=== PATIENT | female | born 1995 | race American Indian/Alaskan Native ===

== ENCOUNTER 2018-08-31 07:00 | Inpatient (IN) | payer MEDICAID, OTHER ==
[2018-08-31 07:45] LABS: Hematocrit 38.4 % (30.3-42.9); Hemoglobin 12.6 gm/dl (10.1-14.3); Mean Corpuscular HGB Conc 33 % (30-34); Mean Corpuscular Volume 89 fl (79-97); Platelet Count 255 K/mm3 (140-440); Red Blood Count 4.31 M/mm3 (3.65-5.03); Red Cell Distribution Width 13.1 % (13.2-15.2)
[2018-08-31] MEDS ORDERED: LACTATED RINGERS 1,000 ML IV ONE (08:00)
[2018-08-31] MEDS ORDERED: PITOCin/NS 20 UNIT/1000ML DRIP 20 UNITS/1,000 ML BAG IV SCH (08:30)
[2018-08-31] MEDS ORDERED: SUBLIMAZE IV PRN (09:00)
[2018-08-31] MEDS ORDERED: LACTATED RINGERS 1,000 ML IV SCH ×2 (09:00→11:00)
[2018-08-31] MEDS ORDERED: XYLOCAINE 2% INFILTRATI NR (09:00)
[2018-08-31] MEDS ORDERED: BRETHINE SUB-Q PRN (09:00)
[2018-08-31] MEDS ORDERED: BRETHINE IVP PRN (09:00)
[2018-08-31] MEDS ORDERED: MINERAL OIL PO PRN (09:00)
[2018-08-31] MEDS ORDERED: NARCAN 2 MG/2 ML IV PRN (10:00)
--- NOTE | 2018-08-31 10:04 | Post Anesthesia Evaluation ---
- Post Anesthesia Evaluation Patient Participated: Yes Airway Patent: Yes Stable Respiratory Function: Yes Nausea/Vomiting: Yes Temp > 96.8F: Yes Pain Manageable: Yes Adequeate Hydration: Yes Anesthesia Complications: No Block Receding Appropriately: Yes Patient on Ventilator: Yes
--- NOTE | 2018-08-31 10:04 | Anesthesia Consultation ---
Anesthesia Consult and Med Hx Date of service: 08/31/18 - Airway Anesthetic Teeth Evaluation: Good ROM Head & Neck: Adequate Mental/Hyoid Distance: Adequate Mallampati Class: Class I Intubation Access Assessment: Good - Pulmonary Exam CTA: Yes - Cardiac Exam Cardiac Exam: RRR - Pre-Operative Health Status ASA Pre-Surgery Classification: ASA2 Proposed Anesthetic Plan: Epidural - Pulmonary Hx Smoking: No Hx Asthma: No Hx Respiratory Symptoms: No SOB: No COPD: No Home Oxygen Therapy: No Hx Pneumonia: No Hx Sleep Apnea: No - Cardiovascular System Hx Hypertension: No Hx Coronary Artery Disease: No Hx Heart Attack/AMI: No Hx Angina: No Hx Percutaneous Transluminal Coronary Angioplasty (PTCA): No Hx Cardia Arrhythmia: No Hx Pacemaker: No Hx Internal Defibrillator: No Hx Valvular Heart Disease: No Hx Heart Murmur: No Hx Peripheral Vascular Disease: No - Central Nervous System Hx Neuromuscular Disorder: No Hx Seizures: Yes (4 years ago) CVA: No Hx Back Pain: No Hx Psychiatric Problems: No - Gastrointestinal Hx Ulcer: No Hx Gastroesophageal Reflux Disease: No - Endocrine Hx Renal Disease: No Hx End Stage Renal Disease: No Hx Cirrhosis: No Hx Liver Disease: No Hx Insulin Dependent Diabetes: No Hx Non-Insulin Dependent Diabetes: No Hx Thyroid Disease: No Hx Hypothyroidism: No Hx Hyperthyroidism: No - Hematic Hx Anemia: No Hx Sickle Cell Disease: No - Other Systems Hx Alcohol Use: No Hx Substance Use: No Hx Cancer: No Hx Obesity: No
[2018-08-31] MEDS ORDERED: fentaNYL-BUPIV 2 MCG/ML-0.125% 200 MCG/100 ML BAG EPIDURAL SCH (10:30)
--- NOTE | 2018-08-31 10:31 | History and Physical Report ---
History of Present Illness Date of examination: 08/31/18 Date of admission: 08/31/18 07:18 Chief complaint: Contractions History of present illness: 23yo AA fe , JOHN 09/15/2018 ([place]), 38weeks 0days, presents in spontaneous labor. records available and reviewed. Pt initiated late care with life cycle at 19+ weeks. Co-managed with [facility] (late care). Placental previa resolved. UTIs x2 treated. labs: A positive, Rubella Immune, VDRL non-reactive, HBsAg neg, HIV neg, HSV2 neg, GC/CL/Trich neg. 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 denies: smoking, alcohol abuse, prescription drug abuse - Obstetrical History Expected Date of Delivery: 09/14/18 Actual Gestation: 38 Week(s) 0 Day(s) : 2 Para: 0 Hx # Term Pregnancies: 0 Number of Pregnancies: 0 Spontaneous Abortions: 0 Induced : 1 Number of Living Children: 0 Medications and Allergies Allergies Allergy/AdvReac Type Severity Reaction Status Date / Time No Known Allergies Allergy Verified 08/31/18 07:13 Active Meds: Active Medications Ephedrine Sulfate (Ephedrine Sulfate) 10 mg IV Q2M PRN PRN Reason: Hypotension Fentanyl (Sublimaze) 100 mcg IV Q2H PRN PRN Reason: Labor Pain Last Admin: 08/31/18 07:25 Dose: 100 mcg Documented by: Oxytocin/Sodium Chloride (Pitocin/Ns 20 Unit/1000ml Drip) 20 units in 1,000 mls @ 125 mls/hr IV DIRECT BERTRAND Fentanyl/Bupivacaine/Sodium Chlor (Fentanyl-Bupiv 2 Mcg/Ml-0.125%) 200 mcg in 100 mls @ 12 mls/hr EPIDURAL TITR BERTRAND; Protocol Last Admin: 08/31/18 10:20 Dose: 12 mls/hr Documented by: Lactated Ringer's (Lactated Ringers) 1,000 mls @ 125 mls/hr IV DIRECT BERTRAND Lidocaine (Xylocaine 2%) 20 ml INFILTRATI ONCE NR Stop: 09/01/18 08:59 Mineral Oil (Mineral Oil) 30 ml PO QHS PRN PRN Reason: Constipation Naloxone HCl (Narcan 2 Mg/2 Ml) 0.2 mg IV Q5M PRN PRN Reason: Respiratory sedation Terbutaline Sulfate (Brethine) 0.25 mg SUB-Q ONCE PRN PRN Reason: Hyperstimulation/Hypertonicity Terbutaline Sulfate (Brethine) 0.25 mg IVP ONCE PRN PRN Reason: Hyperstimulation/Hypertonicity Review of Systems Eyes: normal appearance Cardiovascular: no chest pain, no shortness of breath Respiratory: no shortness of breath Breasts: normal Gastrointestinal: abdominal pain (Contractions), no nausea, no vomiting, no diarrhea Genitourinary: normal appearance, leakage of fluid (SROM 08/31/18 @0600 per pt), contractions, no vaginal bleeding, no genital sores Integumentary: no rash, no sores, no lesions Psychiatric: other (denies) Endocrine: other (denies) - Vital Signs Vital signs: Vital Signs Pulse BP 110 H 105/70 08/31/18 07:29 08/31/18 07:29 Temp Pulse Resp BP Pulse Ox 98.0 F 80 18 118/75 94 08/31/18 07:40 08/31/18 10:24 08/31/18 10:22 08/31/18 10:22 08/31/18 10:24 - Physical Exam Breasts: Positive: normal Cardiovascular: Regular rate, Normal S1, Normal S2, No murmurs Lungs: Positive: Clear to auscultation, Normal air movement Abdomen: Positive: normal appearance, soft, normal bowel sounds. Negative: distention Genitourinary (Female): Positive: normal external genitalia, normal perenium Vagina: Positive: other (clear fluid per RN) Uterus: Positive: enlarged (Gravid) Anus/Rectum: Positive: normal perianal skin Extremities: Positive: normal Deep Tendon Reflex Grade: Normal +2 - Obstetrical FHR: category 1 Uterine Contraction Monitor Mode: External Cervical Dilatation: 4 (Per RN) Cervical Effacement Percentage: 80 station: -2 Uterine Contraction Pattern: Regular Uterine Tone Measurement Phase: Resting Uterine Contraction Intensity: Moderate Results Result Diagrams: 08/31/18 07:20 Abnormal lab results 08/31/18 Range/Units 07:20 WBC 11.4 H (4.5-11.0) K/mm3 RDW 13.1 L (13.2-15.2) % All other labs normal. Assessment and Plan A: TIUP @ 38w0d Spontaneous labor Category 1 tracing GBS Negative P: Admit to L&D; Routine labor orders May have IV pain med/ epidural PRN Anticiapte
[2018-08-31] MEDS ORDERED: DULCOLAX PR PRN (12:21)
[2018-08-31] MEDS ORDERED: NORCO 5/325 PO PRN (12:21)
[2018-08-31] MEDS ORDERED: MILK OF MAGNESIA PO PRN (12:21)
[2018-08-31] MEDS ORDERED: PHENERGAN PO PRN (12:21)
[2018-08-31] MEDS ORDERED: LANSINOH TP PRN (12:21)
[2018-08-31] MEDS ORDERED: ZOFRAN IV PRN (12:21)
[2018-08-31] MEDS ORDERED: TUCKS PAD TP PRN (12:21)
[2018-08-31] MEDS ORDERED: TYLENOL PO PRN (12:21)
[2018-08-31] MEDS ORDERED: BENADRYL PO PRN (12:21)
--- NOTE | 2018-08-31 12:28 | Procedure Note ---
OB Delivery Note - Delivery Date of Delivery: 08/31/18 (11:50) Surgeon: GEE CAM (PARVEZ) Estimated blood loss: 100cc - Vaginal Delivery presentation: vertex Delivery position: OP (LOP) Intrapartum events: mult.variable deceleratio Delivery induction: none Delivery monitor: external FHT, external uterine Route of delivery: (11:50) Delivery placenta: spontaneous (11:57) Delivery cord: 3 umbilical vessels Episiotomy: none Delivery laceration: none Anesthesia: epidural Delivery comments: viable male , LOP presentation over intact perineum at 11:50. Vigorous infant placed [id number] on mothers abdomen. delayed cord clamping; cut by FOB with my guidance. Spontaneous ruiz delivery of intact placenta at 11:57. 3VC. discarded. FF@U-2. No tears or lacerations. ebl 100. Infant and mother left in stable condition in L&D. - Infant A at 1 minute: 8 at 5 minutes: 9 Infant Gender: Male (7lbs-7oz, 3382 grams, 19.5")
[2018-08-31] MEDS ORDERED: SODIUM CHLORIDE FLUSH SYRINGE 10 ML IV NR (13:00)
[2018-09-01] MEDS: IBUPROFEN PO SCH ×3 (00:34→12:35)
[2018-09-01 01:23] LABS: Hematocrit 34.7 % (30.3-42.9); Hemoglobin 11.5 gm/dl (10.1-14.3)
--- NOTE | 2018-09-01 10:59 | Progress Note ---
Assessment and Plan - Patient Problems (1) Status post normal vaginal delivery Current Visit: Yes Status: Acute Plan to address problem: PPD 1 - stable Continue routine PP orders Anticipate discharge in 24 hours Subjective - Subjective Date of service: 09/01/18 Principal diagnosis: PPD #1; s/p Interval history: see H&P and OB Delivery Procedure Note Patient reports: appetite normal, voiding normally, pain well controlled, ambulating normally : doing well, other (breast and bottle feeding) Objective - Vital Signs Latest vital signs: Vital Signs Temp Pulse Resp BP BP Pulse Ox 09/01/18 09:02 98.1 F 91 H 18 103/78 100 09/01/18 00:00 98.2 F 86 20 102/60 08/31/18 20:00 98.2 F 80 20 108/59 08/31/18 17:47 98.3 F 77 24 102/64 98 08/31/18 13:21 95 H 111/68 08/31/18 13:06 93 H 109/67 08/31/18 12:51 91 H 106/61 08/31/18 12:36 86 106/56 08/31/18 12:21 90 118/57 08/31/18 12:06 100 H 119/63 08/31/18 11:58 93 H 104/56 08/31/18 11:51 100 H 138/73 08/31/18 11:49 96 H 95 08/31/18 11:45 98.0 F 18 08/31/18 11:44 158 H 89 08/31/18 11:43 82 L 08/31/18 11:39 74 100 08/31/18 11:37 53 L 128/81 78 L 08/31/18 11:34 84 100 08/31/18 11:30 91 H 94 08/31/18 11:29 107 H 98 08/31/18 11:24 79 100 08/31/18 11:21 76 111/68 08/31/18 11:19 86 99 08/31/18 11:14 78 97 08/31/18 11:09 82 99 08/31/18 11:07 77 111/69 08/31/18 11:06 93 H 92 08/31/18 11:04 87 96 Intake and Output 08/31/18 09/01/18 09/01/18 23:59 07:59 15:59 Intake Total 120 240 Output Total 600 Balance -480 240 Intake: Oral 120 240 Output: Urine 600 Void 600 Other: Total, Intake Amount 120 240 Total, Output Amount 600 # Voids Void 3 1 - Exam Cardiovascular: Present: Regular rate Lungs: Present: Clear to auscultation Abdomen: Present: normal appearance, soft Vulva: both: normal Uterus: Present: normal, firm, fundal height at umbilicus Extremities: Present: normal Comments: small lochia
[2018-09-02] MEDS: IBUPROFEN PO SCH ×2 (00:01→05:47)
--- NOTE | 2018-09-02 10:50 | Progress Note ---
Assessment and Plan A: day 2 S/P spontaneous vaginal delivery. P: Discharge patient home today. Discussed discharge instructions and warning signs with patient. Advised patient to continue taking her vitamins at home. Advised patient to avoid intercourse, driving, lifting and heavy housework. Advised patient to follow up at [facility] in 6 weeks for exam. Patient voiced understanding of all instructions. Subjective - Subjective Date of service: 09/02/18 Principal diagnosis: PPD #2; s/p Interval history: day 2 S/P spontaneous vaginal delivery. Doing well. Patient desires discharge today. Patient denies headache, chest pain, cough, dizziness, shortness of breath, abdominal pain, leg pain, heavy bleeding, symptoms of depression, or any other problems. Patient reports: appetite normal, voiding normally, pain well controlled, flatus, ambulating normally, no dizzy ambulation, no nauseated : doing well Objective - Vital Signs Latest vital signs: Vital Signs Temp Pulse Resp BP BP Pulse Ox 09/02/18 07:48 98.1 F 58 L 18 101/60 09/02/18 05:47 18 09/02/18 00:01 18 09/01/18 23:26 98.3 F 71 18 108/66 96 09/01/18 16:29 99.0 F 85 16 108/59 96 09/01/18 13:35 16 09/01/18 13:14 98.4 F 84 16 113/74 100 09/01/18 12:35 18 Intake and Output 09/01/18 09/02/18 09/02/18 23:59 07:59 15:59 Intake Total 360 720 Balance 360 720 Intake: Oral 720 Intake, Free Water 360 Other: Total, Intake Amount 480 # Voids Void 2 1 - Exam Cardiovascular: Present: Regular rate, Normal S1, Normal S2 Lungs: Present: Clear to auscultation Abdomen: Present: normal appearance, soft. Absent: distention, tenderness, guarding, rigidity Uterus: Present: normal, firm, fundal height below umbilicus. Absent: bogginess, tenderness Extremities: Present: normal. Absent: tenderness, edema
--- NOTE | 2018-09-02 10:53 | Discharge Summary ---
<ANA ARANDA - Last Filed: 09/02/18 10:51> Providers - Providers Date of Admission: 08/31/18 07:18 Date of discharge: 09/02/18 Attending physician: JAYLON ROMERO MD None Primary care physician: JAYLON ROMERO MD Hospitalization Reason for admission: active labor Delivery: Episiotomy: none Laceration: none Other procedures: none complications: none Discharge diagnosis: IUP at term delivered [place] baby: male Pertinent studies: Labs Hospital course: Normal hospital course. Condition at discharge: Good Disposition: DC-01 TO HOME OR SELFCARE - Discharge Diagnoses (1) Term delivered Status: Acute Plan - Provider Discharge Summary Activity: routine, no sex for 6 weeks, no heavy lifting 4 weeks, no strenuous exercise Diet: routine Instructions: routine Additional instructions: Continue taking your vitamins at home. Call your doctor immediately for: * Fever > 100.5 * Heavy vaginal bleeding ( >1 pad per hour) * Severe persistent headache * Shortness of breath * Reddened, hot, painful area to leg or breast - Follow up plan Follow up: JAYLON ROMERO MD [Primary Care Provider] - 6 Weeks Forms: Discharge Signature Page <JONH WELSH - Last Filed: 09/03/18 13:10> Providers - Providers Date of Admission: 08/31/18 07:18 Attending physician: JAYLON ROMERO MD Primary care physician: JAYLON ROMERO MD Hospitalization Hospital course: Laboratory Tests 08/31/18 08/31/18 08/31/18 07:20 07:20 07:20 WBC 11.4 H RBC 4.31 Hgb 12.6 Hct 38.4 MCV 89 MCH 29 MCHC 33 RDW 13.1 L Plt Count 255 RPR Nonreactive Blood Type A POSITIVE Antibody Screen Negative 09/01/18 01:13 WBC RBC Hgb 11.5 Hct 34.7 MCV MCH MCHC RDW Plt Count RPR Blood Type Antibody Screen Plan - Provider Discharge Summary Additional instructions: [] Smoking cessation referral if applicable(refer to patient education folder for contact #) [] Refer to [facility] Booklet Call your doctor immediately for: * Fever > 100.5 * Heavy vaginal bleeding ( >1 pad per hour) * Severe persistent headache * Shortness of breath * Reddened, hot, painful area to leg or breast * Drainage or odor from incision. * Keep incision clean and dry at all times and follow doctor's instructions regarding bathing/showering
[2018-09-02 12:48] VITALS: BP 115/73
== END 2018-09-02 18:41 | disposition home or self-care (01) | DRG 775 ==
LOC: TRG 07:00 → LD 07:18 → OB 14:18
PROVIDERS: ADMIT Obstetrics & Gynecology; ATTEND Obstetrics & Gynecology
PROC: 10E0XZZ Delivery of Products of Conception, External Approach (ICD-10-PCS; principal; 2018-08-31)
PROC: 3E0R3BZ Introduction of Anesthetic Agent into Spinal Canal, Percutaneous Approach (ICD-10-PCS; 2018-08-31)
PROC: 00HU33Z Insertion of Infusion Device into Spinal Canal, Percutaneous Approach (ICD-10-PCS; 2018-08-31)
DX: O76 Abnormality in fetal heart rate and rhythm complicating labor and delivery (principal); Z37.0 Single live birth; Z3A.38 38 weeks gestation of pregnancy; Z83.3 Family history of diabetes mellitus
CPT/HCPCS: 36415; 85014; 85018; 85027; 86592; 86850; 86900; 86901; G0378; J2590; J3010; J7120